=== PATIENT | male | born 1995 | race Two or more races ===

== ENCOUNTER 2023-01-12 18:32 | Inpatient (IN) | payer OTHER ==
[~2023-01-12] VITALS: Ht 177.8 cm; Wt 77.0 kg
[2023-01-12] MEDS ORDERED: ACETAMINOPHEN 325 MG TAB PO ONE (19:15)
[2023-01-12 19:32] LABS: Basophils # (auto) 0.1 10 ^3/uL (0-0.2); Basophils % (auto) 0.5 % (0.0-2.0); Eosinophils # (auto) 0 10 ^3/uL (0-0.8); Hematocrit 37.9 % (41.0-53.0); Hemoglobin 13.4 g/dL (13.5-17.5); Lymphocytes # (auto) 1.5 10 ^3/uL (0.4-5.4); Lymphocytes % (auto) 7.8 % (10.0-50.0); Mean Corpuscular Hemoglobin 27.4 pg (28.0-32.0); Mean Corpuscular Hgb Conc. 35.3 g/dL (32.0-36.0); Mean Corpuscular Volume 77.5 fL (80.0-100.0); Monocytes % (auto) 10.3 % (0.0-12.0); Neutrophils # (auto) 15.9 10 ^3/uL (1.6-8.6); Neutrophils % (auto) 81.4 % (37.0-80.0); Red Blood Cells 4.89 10^6/uL (4.5-5.90); Red Cell Distribution Width 13.4 % (11.8-14.3); White Blood Cell 19.5 10^3/uL (4.4-10.8)
[2023-01-12 20:02] LABS: Albumin 2.6 g/dL (3.4-5.0); Calcium 7.9 mg/dL (8.5-10.1); Potassium 3.7 mmol/L (3.5-5.1)
[2023-01-12 20:05] LABS: BUN/Creatinine Ratio 13.4 (10.0-20.0); Bilirubin, Total 0.5 mg/dL (0.2-1.0); Total Protein 7.4 g/dL (6.4-8.2)
[2023-01-12] MEDS ORDERED: metroNIDAZOLE 500MG/100ML 100 ML IV ONE ×2 (20:30→21:30)
[2023-01-12] MEDS ORDERED: LACTATED RINGER'S 1,000 ML IV ONE (20:30)
[2023-01-12] MEDS ORDERED: IOHEXOL 350 MG/ML 100ML IJ ONE (20:30)
[2023-01-12] MEDS ORDERED: cefTRIAXone 1GM/50ML D5W 50 ML IV ONE (20:30)
[2023-01-12] MEDS ORDERED: LACTATED RINGER'S 2,550 ML IV ONE (21:30)
[2023-01-12] MEDS ORDERED: MORPHINE SULFATE 4 MG/ML SYR/VIAL IV ONE (21:30)
[2023-01-12] MEDS ORDERED: PIPERACILLIN-TAZOB 3.375GM 100 ML IV ONE (21:30)
[2023-01-12] MEDS ORDERED: ONDANSETRON HCL 4 MG/2 ML VIAL IV ONE (21:30)
[2023-01-12] MEDS ORDERED: NITROGLYCERIN 0.4 MG SL TAB SL PRN (22:45)
[2023-01-12] MEDS ORDERED: MORPHINE SULFATE INJ 2 MG/ml SYRG IV PRN (22:45)
[2023-01-12] MEDS: levoFLOXacin 500MG 100 ML IV SCH (23:01)
[2023-01-13] MEDS: D5W/SOD CHL 0.45% 1,000 ML IV SCH ×4 (00:17→17:45)
[2023-01-13] MEDS ORDERED: ONDANSETRON HCL 4 MG/2 ML VIAL IV ONE (02:00)
[2023-01-13 05:38] LABS: Basophils # (auto) 0.1 10 ^3/uL (0-0.2); Basophils % (auto) 0.3 % (0.0-2.0); Eosinophils # (auto) 0.1 10 ^3/uL (0-0.8); Eosinophils % (auto) 0.9 % (0.0-7.0); Hematocrit 35.9 % (41.0-53.0); Hemoglobin 12.7 g/dL (13.5-17.5); Lymphocytes # (auto) 1.6 10 ^3/uL (0.4-5.4); Lymphocytes % (auto) 10.2 % (10.0-50.0); Mean Corpuscular Hemoglobin 27.5 pg (28.0-32.0); Mean Corpuscular Hgb Conc. 35.4 g/dL (32.0-36.0); Mean Corpuscular Volume 77.8 fL (80.0-100.0); Monocytes # (auto) 2.2 10 ^3/uL (0-1.3); Monocytes % (auto) 13.4 % (0.0-12.0); Neutrophils # (auto) 12.1 10 ^3/uL (1.6-8.6); Neutrophils % (auto) 75.2 % (37.0-80.0); Red Blood Cells 4.61 10^6/uL (4.5-5.90); Red Cell Distribution Width 13.5 % (11.8-14.3); White Blood Cell 16.1 10^3/uL (4.4-10.8)
[2023-01-13] MEDS: MORPHINE SULFATE INJ 2 MG/ml SYRG IV PRN (05:44)
[2023-01-13 05:48] LABS: Albumin 2.3 g/dL (3.4-5.0); Calcium 8.1 mg/dL (8.5-10.1); Potassium 3.7 mmol/L (3.5-5.1)
[2023-01-13 05:52] LABS: BUN/Creatinine Ratio 11.1 (10.0-20.0); Bilirubin, Total 0.4 mg/dL (0.2-1.0); Total Protein 6.8 g/dL (6.4-8.2)
[2023-01-13 06:06] LABS: INR 1.33 (0.9-1.15); Partial Thromboplastin Time 27.3 sec (24.6-33.4)
[2023-01-13] MEDS: metroNIDAZOLE 500MG/100ML 100 ML IV SCH ×3 (06:17→22:30)
[2023-01-13] MEDS ORDERED: KETOROLAC TROMETH 30 MG/ML 1ML VIAL IV ONE (06:45)
[2023-01-13] MEDS ORDERED: ACETAMINOPHEN 325 MG TAB PO ONE (06:45)
[2023-01-13] MEDS ORDERED: ENOXAPARIN SOD 40 MG/0.4 ML SYRINGE SC ONE (10:00)
[2023-01-13] MEDS: ONDANSETRON HCL 4 MG/2 ML VIAL IV PRN (10:53)
[2023-01-13 11:10] LABS: Urine Bacteria NONE SEEN /hpf (None Seen); Urine Blood Negative /uL (Negative); Urine Specific Gravity 1.016 (1.001-1.035); Urine WBC 1 /hpf (0 - 3)
[2023-01-13] MEDS ORDERED: ceFAZolin 1GM/50ML 100 ML IV ONE (13:41)
[2023-01-13] MEDS ORDERED: BUPIVACAINE 0.25% INJ 50ML VIAL ONE (14:02)
[2023-01-13] MEDS ORDERED: PROPOFOL 10 MG/ML 20 ML IV ONE (14:10)
[2023-01-13] MEDS ORDERED: DexAMETHasone SOD PHOS 10MG/1ML VIAL INJ ONE ×2 (14:11→15:21)
[2023-01-13] MEDS ORDERED: KETOROLAC TROMETH 30 MG/ML 1ML VIAL ONE (14:11)
[2023-01-13] MEDS ORDERED: GLYCOPYRROLATE 0.2 MG/ML 1ML VIAL ONE (14:11)
[2023-01-13] MEDS ORDERED: ONDANSETRON HCL 4 MG/2 ML VIAL ONE (14:11)
[2023-01-13] MEDS ORDERED: LIDOCAINE 2% (LOCAL ANESTH.) PF 5ml SDV ONE (14:11)
[2023-01-13] MEDS ORDERED: SUGAMMADEX 200mg/2ml Vial (100MG/ML) IV ONE (14:11)
[2023-01-13] MEDS ORDERED: fentaNYL CITRATE 100 MCG/2 ML VL ONE (14:11)
[2023-01-13] MEDS ORDERED: ROCURONIUM 10MG/ML 10ML VIAL IV ONE (14:11)
[2023-01-13] MEDS ORDERED: BUPIVACAINE HCL 50 ML ONE (15:15)
[2023-01-13] MEDS ORDERED: ceFAZolin 1GM VL ONE (15:38)
[2023-01-13] MEDS ORDERED: fentaNYL CITRATE 100 MCG/2 ML VL IV PRN (16:45)
[2023-01-13] MEDS ORDERED: FLUMAZENIL 0.1 MG/ML INJ 10ML MDV IV PRN (16:45)
[2023-01-13] MEDS ORDERED: ONDANSETRON HCL 4 MG/2 ML VIAL IV PRN (16:45)
[2023-01-13] MEDS ORDERED: HYDROmorphone HCL 2 MG/ML VL/or syr IV PRN (16:45)
[2023-01-13] MEDS ORDERED: LABETALOL HCL 5 MG/ML 4ML SYRINGE IV PRN (16:45)
[2023-01-13] MEDS ORDERED: NALOXONE HCL 0.4 MG/ML VIAL IV PRN (16:45)
[2023-01-13] MEDS ORDERED: hydrALAZINE HCL 20 MG/ML VL IV PRN (16:45)
[2023-01-13] MEDS ORDERED: ePHEDrine SULFATE 50 MG/ML AMP IV PRN (16:45)
[2023-01-13 20:00] VITALS: BP 114/70
[2023-01-13 21:00] VITALS: BP_SYST 114; BP_SYST 139; BP_DIAS 70; BP_DIAS 87
[2023-01-13] MEDS: levoFLOXacin 500MG 100 ML IV SCH (23:00)
[2023-01-14] MEDS: D5W/SOD CHL 0.45% 1,000 ML IV SCH ×4 (01:55→21:25)
[2023-01-14 05:00] VITALS: BP 112/66
[2023-01-14] MEDS: metroNIDAZOLE 500MG/100ML 100 ML IV SCH ×3 (06:13→22:46)
[2023-01-14 09:00] VITALS: BP 102/65
[2023-01-14] MEDS: MORPHINE SULFATE INJ 2 MG/ml SYRG IV PRN ×3 (09:01→22:47)
[2023-01-14 13:00] VITALS: BP 118/74
[2023-01-14 17:00] VITALS: BP 110/68
[2023-01-14 20:00] VITALS: BP 112/63
[2023-01-14 22:00] VITALS: BP_SYST 112; BP_SYST 126; BP_DIAS 63; BP_DIAS 69
[2023-01-14] MEDS: levoFLOXacin 500MG 100 ML IV SCH (23:48)
[2023-01-15] MEDS: MORPHINE SULFATE INJ 2 MG/ml SYRG IV PRN ×4 (04:45→23:37)
[2023-01-15 05:00] VITALS: BP 122/79
[2023-01-15] MEDS: ONDANSETRON HCL 4 MG/2 ML VIAL IV PRN ×3 (05:01→17:48)
[2023-01-15] MEDS: D5W/SOD CHL 0.45% 1,000 ML IV SCH ×4 (05:35→13:30)
[2023-01-15 06:11] LABS: Potassium 3.9 mmol/L (3.5-5.1)
[2023-01-15 06:19] LABS: Basophils # (auto) 0.1 10 ^3/uL (0-0.2); Basophils % (auto) 0.4 % (0.0-2.0); Eosinophils # (auto) 0.1 10 ^3/uL (0-0.8); Eosinophils % (auto) 0.4 % (0.0-7.0); Hematocrit 42.9 % (41.0-53.0); Hemoglobin 14.4 g/dL (13.5-17.5); Lymphocytes # (auto) 3.1 10 ^3/uL (0.4-5.4); Lymphocytes % (auto) 16.6 % (10.0-50.0); Mean Corpuscular Hgb Conc. 33.7 g/dL (32.0-36.0); Mean Corpuscular Volume 80.3 fL (80.0-100.0); Monocytes # (auto) 1.7 10 ^3/uL (0-1.3); Monocytes % (auto) 9.2 % (0.0-12.0); Neutrophils # (auto) 13.6 10 ^3/uL (1.6-8.6); Neutrophils % (auto) 73.4 % (37.0-80.0); Nucleated Red Blood Cells % 0.1 %; Red Blood Cells 5.34 10^6/uL (4.5-5.90); Red Cell Distribution Width 13.7 % (11.8-14.3); White Blood Cell 18.5 10^3/uL (4.4-10.8)
[2023-01-15 06:20] LABS: Albumin 2.2 g/dL (3.4-5.0); BUN/Creatinine Ratio 17.2 (10.0-20.0); Bilirubin, Total 0.2 mg/dL (0.2-1.0); Calcium 8.7 mg/dL (8.5-10.1); Total Protein 6.5 g/dL (6.4-8.2)
[2023-01-15] MEDS: metroNIDAZOLE 500MG/100ML 100 ML IV SCH ×3 (06:30→23:36)
[2023-01-15 09:00] VITALS: BP 126/75
[2023-01-15] MEDS: oxyCODONE HCL 5MG TAB PO PRN ×2 (12:01→18:20)
[2023-01-15 13:01] VITALS: BP_SYST 105; BP_SYST 130; BP_DIAS 49; BP_DIAS 80
[2023-01-15 16:42] VITALS: BP 126/76
[2023-01-15] MEDS ORDERED: IOHEXOL 350 MG/ML 100ML IJ ONE (20:16)
[2023-01-15] MEDS ORDERED: IOHEXOL 300 MG/ML 100ML BOTTLE IJ ONE (20:26)
[2023-01-15 21:33] LABS: Albumin 2.3 g/dL (3.4-5.0); BUN/Creatinine Ratio 21.7 (10.0-20.0); Calcium 8.4 mg/dL (8.5-10.1); Potassium 3.6 mmol/L (3.5-5.1)
[2023-01-15 21:36] LABS: Bilirubin, Total 0.3 mg/dL (0.2-1.0); Total Protein 6.5 g/dL (6.4-8.2)
[2023-01-15 22:00] VITALS: BP 133/84
[2023-01-15] MEDS: levoFLOXacin 500MG 100 ML IV SCH (23:36)
[2023-01-16] MEDS: D5W/SOD CHL 0.45% 1,000 ML IV SCH ×4 (00:05→20:05)
[2023-01-16 05:00] VITALS: BP 120/77
[2023-01-16 06:30] LABS: Basophils # (auto) 0.1 10 ^3/uL (0-0.2); Neutrophils # (auto) 16.5 10 ^3/uL (1.6-8.6)
[2023-01-16] MEDS: metroNIDAZOLE 500MG/100ML 100 ML IV SCH ×3 (06:30→22:41)
[2023-01-16 06:32] LABS: Basophils % (auto) 0.5 % (0.0-2.0); Eosinophils # (auto) 0.1 10 ^3/uL (0-0.8); Eosinophils % (auto) 0.6 % (0.0-7.0); Hematocrit 45.1 % (41.0-53.0); Lymphocytes # (auto) 2.3 10 ^3/uL (0.4-5.4); Mean Corpuscular Hemoglobin 27.1 pg (28.0-32.0); Mean Corpuscular Hgb Conc. 33.3 g/dL (32.0-36.0); Mean Corpuscular Volume 81.4 fL (80.0-100.0); Monocytes % (auto) 9.6 % (0.0-12.0); Neutrophils % (auto) 78.3 % (37.0-80.0); Red Blood Cells 5.54 10^6/uL (4.5-5.90); White Blood Cell 21.1 10^3/uL (4.4-10.8)
[2023-01-16 08:00] VITALS: BP 115/70
[2023-01-16 09:00] VITALS: BP 115/70
[2023-01-16] MEDS: MORPHINE SULFATE INJ 2 MG/ml SYRG IV PRN (11:20)
[2023-01-16 13:00] VITALS: BP 110/54
[2023-01-16 17:00] VITALS: BP 130/74
[2023-01-16] MEDS: ONDANSETRON HCL 4 MG/2 ML VIAL IV PRN ×2 (17:56→22:55)
[2023-01-16 22:48] VITALS: BP 131/80
[2023-01-16] MEDS: oxyCODONE HCL 5MG TAB PO PRN (22:56)
[2023-01-16] MEDS: levoFLOXacin 500MG 100 ML IV SCH (23:00)
[2023-01-17] MEDS: D5W/SOD CHL 0.45% 1,000 ML IV SCH ×3 (02:45→16:05)
[2023-01-17 05:00] VITALS: BP 104/60
[2023-01-17] MEDS: metroNIDAZOLE 500MG/100ML 100 ML IV SCH (06:09)
[2023-01-17 06:32] LABS: Eosinophils # (auto) 0.7 10 ^3/uL (0-0.8); Monocytes # (auto) 1.5 10 ^3/uL (0-1.3)
[2023-01-17 06:35] LABS: Basophils # (auto) 0.1 10 ^3/uL (0-0.2); Basophils % (auto) 0.5 % (0.0-2.0); Eosinophils % (auto) 4.4 % (0.0-7.0); Hematocrit 40.5 % (41.0-53.0); Hemoglobin 13.6 g/dL (13.5-17.5); Lymphocytes % (auto) 18.4 % (10.0-50.0); Mean Corpuscular Hemoglobin 26.9 pg (28.0-32.0); Mean Corpuscular Hgb Conc. 33.5 g/dL (32.0-36.0); Mean Corpuscular Volume 80.2 fL (80.0-100.0); Neutrophils # (auto) 11.1 10 ^3/uL (1.6-8.6); Neutrophils % (auto) 67.7 % (37.0-80.0); Nucleated Red Blood Cells % 0.1 %; Red Blood Cells 5.05 10^6/uL (4.5-5.90); Red Cell Distribution Width 14.1 % (11.8-14.3); White Blood Cell 16.5 10^3/uL (4.4-10.8)
[2023-01-17 06:48] LABS: Albumin 1.9 g/dL (3.4-5.0); Calcium 8.2 mg/dL (8.5-10.1); Potassium 3.7 mmol/L (3.5-5.1)
[2023-01-17 06:51] LABS: BUN/Creatinine Ratio 19.4 (10.0-20.0); Bilirubin, Total 0.3 mg/dL (0.2-1.0); Total Protein 5.2 g/dL (6.4-8.2)
[2023-01-17 09:10] VITALS: BP 118/75
[2023-01-17] MEDS: oxyCODONE HCL 5MG TAB PO PRN ×2 (09:15→18:20)
[2023-01-17] MEDS: ONDANSETRON HCL 4 MG/2 ML VIAL IV PRN (11:38)
[2023-01-17 12:38] VITALS: BP 134/94
[2023-01-17 17:28] VITALS: BP 124/85
[2023-01-17] MEDS: HYDROmorphone HCL 2 MG/ML VL/or syr IV PRN ×2 (18:45→23:36)
[2023-01-17 22:00] VITALS: BP 119/78
[2023-01-17] MEDS: levoFLOXacin 500MG 100 ML IV SCH (23:06)
[2023-01-18] MEDS: D5W/SOD CHL 0.45% 1,000 ML IV SCH ×4 (00:18→18:05)
[2023-01-18 05:05] VITALS: BP 124/73
[2023-01-18 09:00] VITALS: BP 135/75
[2023-01-18] MEDS: ONDANSETRON HCL 4 MG/2 ML VIAL IV PRN (09:13)
[2023-01-18] MEDS: HYDROmorphone HCL 2 MG/ML VL/or syr IV PRN ×2 (09:14→22:48)
[2023-01-18 13:00] VITALS: BP 133/82
[2023-01-18 17:00] VITALS: BP 125/81
[2023-01-18 22:00] VITALS: BP 120/75
[2023-01-18] MEDS: levoFLOXacin 500MG 100 ML IV SCH (22:59)
[2023-01-19] MEDS: D5W/SOD CHL 0.45% 1,000 ML IV SCH ×4 (01:01→21:15)
[2023-01-19] MEDS: HYDROmorphone HCL 2 MG/ML VL/or syr IV PRN ×4 (04:53→21:27)
[2023-01-19 05:00] VITALS: BP 106/72
[2023-01-19 05:51] LABS: Potassium 3.6 mmol/L (3.5-5.1)
[2023-01-19 05:55] LABS: BUN/Creatinine Ratio 10.9 (10.0-20.0); Bilirubin, Total 0.6 mg/dL (0.2-1.0); Total Protein 5.3 g/dL (6.4-8.2)
[2023-01-19 05:58] LABS: Basophils # (auto) 0.1 10 ^3/uL (0-0.2); Basophils % (auto) 0.3 % (0.0-2.0); Eosinophils # (auto) 0.6 10 ^3/uL (0-0.8); Eosinophils % (auto) 3.3 % (0.0-7.0); Hematocrit 39.8 % (41.0-53.0); Hemoglobin 13.6 g/dL (13.5-17.5); Mean Corpuscular Hemoglobin 27.9 pg (28.0-32.0); Mean Corpuscular Hgb Conc. 34.1 g/dL (32.0-36.0); Mean Corpuscular Volume 81.7 fL (80.0-100.0); Monocytes # (auto) 1.4 10 ^3/uL (0-1.3); Monocytes % (auto) 8.6 % (0.0-12.0); Neutrophils # (auto) 12.6 10 ^3/uL (1.6-8.6); Neutrophils % (auto) 75.8 % (37.0-80.0); Nucleated Red Blood Cells % 0.1 %; Red Blood Cells 4.86 10^6/uL (4.5-5.90); Red Cell Distribution Width 13.8 % (11.8-14.3); White Blood Cell 16.7 10^3/uL (4.4-10.8)
[2023-01-19 09:00] VITALS: BP 114/71
[2023-01-19 13:00] VITALS: BP 127/76
[2023-01-19 17:00] VITALS: BP 113/59
[2023-01-19 22:00] VITALS: BP_SYST 107; BP_SYST 129; BP_DIAS 67; BP_DIAS 74
[2023-01-19] MEDS: levoFLOXacin 500MG 100 ML IV SCH (22:35)
[2023-01-20] MEDS: HYDROmorphone HCL 2 MG/ML VL/or syr IV PRN ×3 (01:44→10:59)
[2023-01-20] MEDS: D5W/SOD CHL 0.45% 1,000 ML IV SCH ×3 (04:01→17:25)
[2023-01-20 05:00] VITALS: BP 103/60
[2023-01-20 09:00] VITALS: BP 95/55
[2023-01-20 13:00] VITALS: BP 103/62
[2023-01-20 17:00] VITALS: BP 120/69
[2023-01-20] MEDS: oxyCODONE HCL 5MG TAB PO PRN (20:29)
[2023-01-20 22:00] VITALS: BP 107/66
[2023-01-20] MEDS: levoFLOXacin 500MG 100 ML IV SCH (22:17)
[2023-01-21] MEDS: D5W/SOD CHL 0.45% 1,000 ML IV SCH ×2 (00:05→06:22)
[2023-01-21] MEDS: oxyCODONE HCL 5MG TAB PO PRN ×3 (02:20→21:20)
[2023-01-21 04:36] VITALS: BP 95/49
[2023-01-21 09:00] VITALS: BP 94/51
[2023-01-21] MEDS: HYDROmorphone HCL 2 MG/ML VL/or syr IV PRN (12:02)
[2023-01-21 13:00] VITALS: BP 101/50
[2023-01-21 17:00] VITALS: BP 113/78
[2023-01-21 22:00] VITALS: BP 111/63
[2023-01-22] MEDS: levoFLOXacin 500MG 100 ML IV SCH ×2 (00:30→23:06)
[2023-01-22] MEDS: oxyCODONE HCL 5MG TAB PO PRN ×3 (03:03→20:56)
[2023-01-22 05:00] VITALS: BP 91/51
[2023-01-22 09:00] VITALS: BP 105/58
[2023-01-22 13:00] VITALS: BP 109/61
[2023-01-22] MEDS: metroNIDAZOLE 500MG/100ML 100 ML IV SCH ×2 (14:01→21:55)
[2023-01-22 17:00] VITALS: BP 93/48
[2023-01-22 22:00] VITALS: BP 105/48
[2023-01-23 05:00] VITALS: BP 95/52
[2023-01-23] MEDS: metroNIDAZOLE 500MG/100ML 100 ML IV SCH ×3 (05:25→21:42)
[2023-01-23 06:39] LABS: Basophils # (auto) 0.1 10 ^3/uL (0-0.2); Basophils % (auto) 0.5 % (0.0-2.0); Eosinophils # (auto) 0.3 10 ^3/uL (0-0.8); Eosinophils % (auto) 2.4 % (0.0-7.0); Hematocrit 38.8 % (41.0-53.0); Hemoglobin 13.2 g/dL (13.5-17.5); Lymphocytes # (auto) 2.2 10 ^3/uL (0.4-5.4); Lymphocytes % (auto) 18.5 % (10.0-50.0); Mean Corpuscular Hemoglobin 27.3 pg (28.0-32.0); Mean Corpuscular Volume 80.4 fL (80.0-100.0); Monocytes # (auto) 1.3 10 ^3/uL (0-1.3); Monocytes % (auto) 10.7 % (0.0-12.0); Neutrophils # (auto) 8.2 10 ^3/uL (1.6-8.6); Neutrophils % (auto) 67.9 % (37.0-80.0); Nucleated Red Blood Cells % 0.2 %; Red Blood Cells 4.82 10^6/uL (4.5-5.90); Red Cell Distribution Width 14.1 % (11.8-14.3); White Blood Cell 12.1 10^3/uL (4.4-10.8)
[2023-01-23 07:30] VITALS: BP 118/50
[2023-01-23 08:15] VITALS: BP 118/50
[2023-01-23] MEDS: ENOXAPARIN SOD 40 MG/0.4 ML SYRINGE SC SCH (09:57)
[2023-01-23 12:30] VITALS: BP 99/45
[2023-01-23] MEDS: oxyCODONE HCL 5MG TAB PO PRN ×2 (14:49→21:53)
[2023-01-23 16:25] VITALS: BP 107/62
[2023-01-23 22:00] VITALS: BP 118/69
[2023-01-23] MEDS: levoFLOXacin 500MG 100 ML IV SCH (23:03)
[2023-01-24 05:00] VITALS: BP 109/59
[2023-01-24] MEDS: metroNIDAZOLE 500MG/100ML 100 ML IV SCH ×3 (05:44→21:45)
[2023-01-24 07:30] VITALS: BP 107/55
[2023-01-24 09:00] VITALS: BP 107/55
[2023-01-24] MEDS: ENOXAPARIN SOD 40 MG/0.4 ML SYRINGE SC SCH (09:41)
[2023-01-24] MEDS: HYDROcodone-ACET 10/325MG TAB PO PRN ×2 (09:46→20:35)
[2023-01-24 13:00] VITALS: BP 114/63
[2023-01-24 17:00] VITALS: BP 126/71
[2023-01-24 22:00] VITALS: BP 115/57
[2023-01-24] MEDS: levoFLOXacin 500MG 100 ML IV SCH (23:01)
[2023-01-25 05:00] VITALS: BP 117/59
[2023-01-25] MEDS: metroNIDAZOLE 500MG/100ML 100 ML IV SCH ×3 (06:01→21:48)
[2023-01-25 07:30] VITALS: BP 105/58
[2023-01-25 09:00] VITALS: BP 105/58
[2023-01-25] MEDS: ENOXAPARIN SOD 40 MG/0.4 ML SYRINGE SC SCH (11:02)
[2023-01-25] MEDS: HYDROcodone-ACET 10/325MG TAB PO PRN (11:10)
[2023-01-25 13:00] VITALS: BP 103/61
[2023-01-25 17:00] VITALS: BP 95/53
[2023-01-25 22:00] VITALS: BP 119/59
[2023-01-25] MEDS: levoFLOXacin 500MG 100 ML IV SCH (23:04)
[2023-01-26 05:00] VITALS: BP 117/51
[2023-01-26] MEDS: metroNIDAZOLE 500MG/100ML 100 ML IV SCH ×2 (05:51→14:00)
[2023-01-26] MEDS: ENOXAPARIN SOD 40 MG/0.4 ML SYRINGE SC SCH (08:48)
[2023-01-26 09:00] VITALS: BP 101/49
[2023-01-26] MEDS ORDERED: LEVO750T8 PO (11:07)
[2023-01-26] MEDS: HYDROcodone-ACET 10/325MG TAB PO PRN (11:28)
[2023-01-26 13:13] VITALS: BP 111/66
== END 2023-01-26 14:25 | DRG 337 ==
LOC: EEVIPCON 18:32 → ER 18:32 → EDBD 18:32 → OVERFLOW 22:45 → CENTRAL 01-13 17:28
PROVIDERS: ADMIT Internal Medicine; ATTEND Internal Medicine
PROC: 0DTJ0ZZ Resection of Appendix, Open Approach (ICD-10-PCS; 2023-01-13)
PROC: 0W9J00Z Drainage of Pelvic Cavity with Drainage Device, Open Approach (ICD-10-PCS; 2023-01-13)
PROC: 0WJG4ZZ Inspection of Peritoneal Cavity, Percutaneous Endoscopic Approach (ICD-10-PCS; 2023-01-13)
PROC: 0DNW0ZZ Release Peritoneum, Open Approach (ICD-10-PCS; principal; 2023-01-13 14:13)
DX: K35.33 Acute appendicitis with perforation, localized peritonitis, and gangrene, with abscess (principal); K66.0 Peritoneal adhesions (postprocedural) (postinfection); Z20.822 Contact with and (suspected) exposure to COVID-19
CPT/HCPCS: 36415; 71045; 74177; 74178; 80053; 81001; 83605; 83690; 85025; 85610; 85730; 87040; 87081; 87426; 96365; 96366; 96367; 96375; G0378; J0690; J0696; J1100; J1885; J1956; J2001; J2405; J2543; J2704; J3490